=== PATIENT | male | born 1960 | race Caucasian/White ===

== ENCOUNTER 2016-05-13 21:17 | Inpatient (IN) | payer SELFPAY ==
[~2016-05-13] VITALS: Ht 182.9 cm; Wt 102.2 kg
[2016-05-13] MEDS: NITROGLYCERIN SUBLINGUAL 0.4 MG BOTTLE OF 25. SL PRN ×3 (21:37→21:50)
[2016-05-13 21:39] LABS: BASO % 0 % (0-3); EOS % 4 % (0-3); HEMATOCRIT 45.2 % (39.0-53.0); HEMOGLOBIN 14.9 g/dL (13.0-17.5); LYMPH # 3.2 x10^3/uL (1.0-4.8); LYMPH % 34 % (24-48); MEAN CORPUSCULAR HEMOGLOBIN 32 pg (25-35); MEAN CORPUSCULAR HGB CONC 33 g/dL (31-37); MEAN CORPUSCULAR VOLUME 97 fL (79-100); MONO % 10 % (0-9); NEUT % 52 % (31-73); PLATELET COUNT 275 x10^3/uL (140-400); RED BLOOD COUNT 4.67 x10^6/uL (4.30-5.70); RED CELL DISTRIBUTION WIDTH 13.8 % (11.5-14.5); WHITE BLOOD COUNT 9.5 x10^3/uL (4.0-11.0)
[2016-05-13 21:42] LABS: POTASSIUM ISTAT 3.8 mmol/L (3.5-5.0)
--- NOTE | 2016-05-13 21:42 | PHYS DOC ---
Past Medical History Past Medical History: Hypertension Past Surgical History: No Surgical History Alcohol Use: Occasionally Drug Use: Marijuana Adult General Chief Complaint Chief Complaint: CHEST PAIN HPI HPI 56-year-old male who is coming in with 30 minutes of sharp sudden onset of midsternal chest pain. Patient states he had a mild episode like this yesterday to fully resolved but this is much more severe. He rates his pain at a 10 out of 10 with sternal area. He states he has history of hypertension but has not been taking his medications. Currently his blood pressure is elevated at 189/ 111. He is mildly short of breath as well. He admits to marijuana use tonight but no other drug use. He does not smoke tobacco. at bedside gave him 3 baby aspirin and some cayenne. Review of Systems Review of Systems Constitutional: Denies fever or chills [] Eyes: Denies change in visual acuity, redness, or eye pain [] HENT: Denies nasal congestion or sore throat [] Respiratory: Denies cough, has shortness of breath [] Cardiovascular: No additional information not addressed in HPI [] GI: Denies abdominal pain, nausea, vomiting, bloody stools or diarrhea [] : Denies dysuria or hematuria [] Musculoskeletal: Denies back pain or joint pain [] Integument: Denies rash or skin lesions [] Neurologic: Denies headache, focal weakness or sensory changes [] Endocrine: Denies polyuria or polydipsia [] Current Medications Current Medications Current Medications Medications (Trade) Dose Ordered Sig/[facility] Start Time Stop Time Status Last Admin Dose Admin Fentanyl Citrate (Fentanyl 2ml Vial) 50 mcg 1X ONCE 05/13/16 22:00 05/13/16 22:02 DC 05/13/16 22:00 50 MCG Lorazepam (Ativan) 1 mg 1X ONCE 05/13/16 21:45 05/13/16 21:46 DC 05/13/16 21:37 1 MG Nitroglycerin (Nitrostat) 0.4 mg PRN Q5MIN PRN 05/13/16 21:45 05/13/16 21:50 0.4 MG Allergies Allergies Allergies Coded Allergies Type Severity Reaction Last Updated Verified No Known Drug Allergies 05/13/16 No Physical Exam Physical Exam Constitutional: Well developed, well nourished, no acute distress, non-toxic appearance. [] HENT: Normocephalic, atraumatic, bilateral external ears normal, oropharynx moist, no oral exudates, nose normal. [] Eyes: PERRLA, EOMI, conjunctiva normal, no discharge. [] Neck: Normal range of motion, no tenderness, supple, no stridor. [] Cardiovascular:Heart rate regular rhythm, no murmur [] Lungs & Thorax: Bilateral breath sounds clear to auscultation [] Abdomen: Bowel sounds normal, soft, no tenderness, no masses, no pulsatile masses. [] Skin: Warm, dry, no erythema, no rash. [] Back: No tenderness, no CVA tenderness. [] Extremities: No tenderness, no cyanosis, no clubbing, ROM intact, no edema. [] Neurologic: Alert and oriented X 3, normal motor function, normal sensory function, no focal deficits noted. [] Psychologic: Affect normal, judgement normal, mood normal. [] Current Patient Data Vital Signs Vital Signs Date Time Temp Pulse Resp B/P Pulse Ox O2 Delivery O2 Flow Rate FiO2 05/13/16 21:50 92 178/85 05/13/16 21:40 22 97 Room Air Lab Values Laboratory Tests Test 05/13/16 21:28 05/13/16 21:34 05/13/16 21:39 White Blood Count 9.5x10^3/uL (4.0-11.0) Red Blood Count 4.67x10^6/uL (4.30-5.70) Hemoglobin 14.9g/dL (13.0-17.5) Hematocrit 45.2% (39.0-53.0) Mean Corpuscular Volume 97fL (79-100) Mean Corpuscular Hemoglobin 32pg (25-35) Mean Corpuscular Hemoglobin Concent 33g/dL (31-37) Red Cell Distribution Width 13.8% (11.5-14.5) Platelet Count 275x10^3/uL (140-400) Neutrophils (%) (Auto) 52% (31-73) Lymphocytes (%) (Auto) 34% (24-48) Monocytes (%) (Auto) 10% (0-9) H Eosinophils (%) (Auto) 4% (0-3) H Basophils (%) (Auto) 0% (0-3) Neutrophils # (Auto) 4.9x10^3uL (1.8-7.7) Lymphocytes # (Auto) 3.2x10^3/uL (1.0-4.8) Monocytes # (Auto) 1.0x10^3/uL (0.0-1.1) Eosinophils # (Auto) 0.4x10^3/uL (0.0-0.7) Basophils # (Auto) 0.0x10^3/uL (0.0-0.2) Sodium Level 142mmol/L (136-145) Potassium Level 3.8mmol/L (3.5-5.1) Chloride Level 104mmol/L (98-107) Carbon Dioxide Level 30mmol/L (21-32) Anion Gap 8 (6-14) 18mmol/L (6-14) H Blood Urea Nitrogen 22mg/dL (8-26) Creatinine 1.6mg/dL (0.7-1.3) H Estimated GFR (Cockcroft-Gault) 44.6 Glucose Level 121mg/dL (70-99) H 115mg/dL (70-99) H Calcium Level 9.5mg/dL (8.5-10.1) Troponin I Quantitative 0.008ng/mL (0.000-0.055) Ethyl Alcohol Level < 10mg/dL (0-10) POC Troponin I 0.01ng/ml (<0.08) POC Hemoglobin 15.6g/dL (14-18) POC Hematocrit 46% (37-52) POC Sodium 142mmol/L (135-145) POC Potassium 3.8mmol/L (3.5-5.0) POC Chloride 103mmol/L (98-110) POC Total CO2 25mmol/L (23-32) POC Blood Urea Nitrogen 22mg/dL (8-26) POC Creatinine 1.7mg/dL (0.5-1.4) H POC Ionized Calcium (Solo) 1.19mmol/L (1.13-1.32) Laboratory Tests 05/13/16 21:28 Laboratory Tests 05/13/16 21:28 05/13/16 21:39 EKG EKG EKG as interpreted by me reveals a sinus rhythm with a rate of 71. The t-waves appear to be peaked in V3, V4. There are no acute ST elevations. This EKG does not demonstrate STEMI criteria but will be repeated in 20 min. Radiology/Procedures Radiology/Procedures One view of the chest as interpreted by me does not reveal an acute cardiopulmonary process. Course & Med Decision Making Course & Med Decision Making Pertinent Labs and Imaging studies reviewed. (See chart for details) This 56-year-old male with sudden onset of chest pain has an EKG that does show some eat T waves in V3 and V4 for which I will repeat in 20 minutes for any changes. An i-STAT troponin will be given. I will give the patient sublingual nitroglycerin and a dose of Ativan for anxiety. The patient will likely be admitted for further observation and treatment for his ongoing chest pain. Repeat EKG does not reveal any acute changes. His troponin is negative. His chest x-ray is unremarkable. I discussed the needed for admission with Dr Plunkett who agreed to accept the patient for admission with cardiology consult. 3 doses of sublingual nitroglycerin were unsuccessful treatment patient's chest pain. Patient was ultimately given fentanyl with moderate relief. Dragon Disclaimer Dragon Disclaimer This electronic medical record was generated, in whole or in part, using a voice recognition dictation system. Departure Departure Impression: Primary Impression: Chest pain Disposition: ADMITTED INPATIENT Admitting Physician: Hernan Plunkett Condition: STABLE ARNAV GARCIA DO May 13, 2016 21:43
[2016-05-13] MEDS ORDERED: LORAZEPAM 2 MG/ML VIAL IV ONE (21:45)
[2016-05-13 21:50] LABS: CALCIUM 9.5 mg/dL (8.5-10.1); CREATININE 1.6 mg/dL (0.7-1.3); GFR 44.6; POTASSIUM 3.8 mmol/L (3.5-5.1)
[2016-05-13] MEDS ORDERED: FENTANYL PF 100 MCG/2 ML VIAL. IV ONE (22:00)
[2016-05-13] MEDS ORDERED: ACETAMINOPHEN 325 MG TABLET. PO PRN (22:30)
[2016-05-13] MEDS ORDERED: ONDANSETRON PF 4 MG/2 ML VIAL. IV PRN (22:30)
[2016-05-13 22:45] VITALS: BP 135/86
--- NOTE | 2016-05-13 23:12 | ACF ---
Admission Forms Criteria CARDIOLOGY GRG Clinical Indications for Admission to Inpatient Care ( Place 'X' for any and all applicable criteria): Hospital admission is needed for appropriate care of the patient because of ANY ONE of the following (1): [ ] I. Hemodynamic instability as indicated by ALL of the following (1)(2)(3) (4)(5) [ ]a) Vital signs or other findings not as expected for chronic patient condition or baseline [ ]b) Instability indicated by ANY ONE of the following: [ ]i) Hypotension [ ]ii) Symptomatic Tachycardia unresponsive to treatment ( e.g., analgesia, fluids, sedation as indicated) [ ]iii) Inadequate perfusion indicated by ANY ONE of the following: [ ] 1) Lactic acidosis (> 2 mmol/L) [ ] 2) New abnormal capillary refill (> 3 seconds) [ ] 3) Reduced urine output [ ] 4) New altered mental status [ ]iv) Orthostatic vital sign changes unresponsive to treatment (e.g., fluids) [ ]v) IV inotropic or vasopressor medication required to maintain adequate blood pressure or perfusion [ ] II. Severe heart failure as indicated by ANY ONE of the following(17)(18) [ ]a) Respiratory distress [ ]b) Hypotension [ ]c) Anasarca (refractory to outpatient therapy) [ ]d) Cardiac arrhythmias of immediate concern [ ]e) Myocardial ischemia [ ] III. Cardiac arrhythmias or findings of immediate concern indicated by ANY ONE of the following (19)(20): [ ] a) Heart rhythms that are inherently dangerous or unstable indicated by ANY ONE of the following (21)(22)(23): [ ] i) Resuscitated ventricular fibrillation or cardiac arrest [ ] ii) Ventricular escape rhythm [ ] iii) Sustained ventricular tachycardia (30 seconds or more of ventricular rhythm at greater than 100 beats per minute) [ ] iv) Nonsustained ventricular tachycardia and ANY ONE of the following: [ ] 1) Suspected cardiac ischemia as cause or consequence of ventricular tachycardia [ ] 2) In setting of acute myocarditis [ ] b) Unstable cardiac conduction defects indicated by ANY ONE of the following(23)(24)(25) [ ] i) Type II second-degree atrioventricular block [ ]ii) Third-degree atrioventricular block [ ]iii) New-onset left bundle branch block with suspected myocardial ischemia [ ]c) Any heart rhythm and ANY ONE of the following (21)(22)(26)(27) (28) [ ] i) Continuous long-term ECG monitoring needed (e.g., initiation of drug requiring monitoring for more than 24 hours) [ ] ii) Patient has automatic implanted cardioverter defibrillator that is repeatedly firing, malfunctioning, or in need of immediate adjustment of settings beyond the scope of ambulatory or observation care [ ]d) Heart rhythms of concern due to ANY ONE of the following: [ ] i) Hypotension [ ] ii) Respiratory distress [ ] iii) Association with other significant symptoms (e.g., bradycardia with syncope or ongoing dizziness, supraventricular tachycardia with chest pain (14)(15)(17) [ ] IV. Monitoring for cardiac contusion beyond the scope of observation care needed [A](30)(31)(32) [ ] V. Surgical or device complication (e.g., valve replacement complication , pacemaker dysfunction) (35)(41)(44)(45)(46) [ ] . Inpatient palliative care needed. [B](49) Also use Inpatient Palliative Care Criteria [ ] VII. Nonbacterial thrombotic (marantic) endocarditis (36)(43)(47)(48) [X] VIII. Cardiology condition, symptom, or finding for which emergency and observation care has failed or are not considered appropriate. [ ] IX. Acute valvular disease requiring inpatient as indicated by ANY ONE of the following (41) [ ]a) Acute valvular regurgitation (42) [ ]b) Noninfectious valvulitis (43) [ ]c) Obstructive valve thrombosis [ ]d) Paravalvular leak [ ]e) Other significant valvular disorder remaining after emergency or observation level of care (as appropriate) [ ]X. Pericardial disease requiring inpatient treatment as indicated by ANY ONE of the following (33)(34)(35)(36)(37) [ ]a) Suspected tamponade (38)(39)(40) [ ]b) Hemopericardium [ ]c) Other significant pericardial disorder remaining after emergency or observation level of care (as appropriate) [ ] XI. Cardiac ischemia beyond scope of emergency and observation care. [ ] XII. Hypertension requiring inpatient treatment as indicated by ANY ONE of the following (6)(7)(8) [ ]a) SBP greater than 220 mm Hg or DBP greater than 120 mmHg despite treatment [ ]b) SBP greater than 140 mm Hg or DBP greater than 100 mm Hg with evidence of acute end organ damage as indicated by ANY ONE of the following [ ] i) Encephalopathy [ ] ii) Acute renal failure as indicated by new onset of ANY ONE of the following (9)(10)(11)(12)(13) [ ]1) 3-fold rise in serum creatinine from baseline [ ]2) Serum creatinine greater than 4 mg/dL ( 354 micromoles/L) with acute rise greater than 0.5 mg/dL (44.2 micromoles/L) [ ]3) Reduction of more than 75% in estimated glomerular filtration rate from baseline [ ]4) Estimated glomerular filtration rate less than 35 mL/min/1.73m2 (0.59 mL/sec/1.73m2) in child up to 18 years of age [ ]5) Cessation of urine output indicated by ALL of the following [ ]A. Adequate volume status [ ]B. Inadequate urine output as indicated by ANY ONE of the following [ ]a. Urine output less than 0.3 mL/kg/hr for 24 hours [ ]b. Anuria (urine output less than 0.1 mL/kg/hr) for 12 hours [ ] iii) Aortic dissection [ ] iv) Myocardial Ischemia [ ] v) Left ventricular heart failure [ ]vi) Retinal Hemorrhage [ ]vii) Other significant finding [ ]c) Hypertension in child requiring inpatient treatment as indicated by ALL of the following(14)(15)(16) [ ] i) Outpatient treatment not effective, not available, or not appropriate [ ]ii) SBP or DBP greater than 95th percentile for age [ ]iii) Evidence of acute end organ damage as indicated by ANY ONE of the following [ ]1) Altered mental status [ ]2) Acute renal failure as indicated by new onset of ANY ONE of the following(9)(10)(11)(12)(13) [ ]A. 3-fold rise in serum creatinine from baseline [ ]B. Serum creatinine greater than 4 mg/dL (354 micromoles/L) with acute rise greater than 0.5 mg/dL (44.2 micromoles/L) [ ]C. Reduction of more than 75% in estimated glomerular filtration rate from baseline [ ]D. Estimated glomerular filtration rate less than 35 mL/min/1.73m2 (0.59 mL/sec/1.73m2) in child up to 18 years of age [ ]E. Cessation of urine output indicated by ALL of the following [ ]a. Adequate volume status [ ]b. Inadequate urine output as indicated by ANY ONE of the following [ ]i) Urine output less than 0.3 mL/kg/hr for 24 hours [ ]ii) Anuria ( urine output less than 0.1 mL/kg/hr) for 12 hours [ ]3) Severe headache [ ]4) Visual disturbance [ ]5) Retinal hemorrhage [ ]6) Other significant finding [ ]XIII. Complications of transplanted heart indicated by ANY ONE of the following(61): [ ]a) Acute graft rejection requiring inpatient management (eg, intravenous immunosuppression)(62)(63) [ ]b) Acute graft heart failure indicated by ANY ONE of the following(64): [ ]i) Hemodynamic instability [ ]ii) Cardiac arrhythmias of immediate concern [ ]iii) Pulmonary edema that is very severe (eg, mechanical ventilation needed, imminent or likely, need for 100% oxygen to keep oxygen saturation above 90%) [ ]iv) Pulmonary edema that is persistent as indicated by ALL of the following: [ ]1) New need for oxygen therapy to keep oxygen saturation above 90% (or increased FiO2 need from baseline) [ ]2) Has not improved sufficiently with emergency department or observation care IV diuretics or other heart failure treatments[E] [ ]v) Altered mental status that is severe or persistent [ ]vi) Increased creatinine (new on laboratory test) with reduction of more than 50% in estimated glomerular filtration rate from baseline [ ]vii) Progressively (ongoing) rising creatinine (known from past laboratory test) with reduction of more than 25% in estimated glomerular filtration rate from baseline [ ]viii) Acute renal failure [ ]ix) Acute peripheral ischemia (eg, examination shows pulseless, cool, mottled, or cyanotic extremity) [ ]x) Pulmonary artery catheter monitoring needed [ ]xi) Other sign or symptom of heart failure requiring inpatient treatment (ie, too severe or not responsive to outpatient and observation care treatment) [ ]c) Infection requiring inpatient management (eg, Hemodynamic instability, need for intravenous antimicrobial treatment)(66)(67)(68)(69)(70) [ ]d) Cardiac allograft vasculopathy requiring inpatient management ( eg evidence of cardiac ischemia)(71) [ ]e) Other complication of transplanted heart (eg, stroke, severe pulmonary hypertension, severe valvular dysfunction) requiring inpatient management(72) The original [facility] content created by [facility] has been revised. The portions of the content which have been revised are identified through the use of italic text or in bold, and [facility] has neither reviewed nor approved the modified material. All other unmodified content is copyright [facility]. Please see references footnoted in the original [facility] edition 2016 Admission Criteria Met?: Yes CAROLINA ATKINS May 13, 2016 23:12
[2016-05-14 02:30] VITALS: BP 93/51
--- NOTE | 2016-05-14 08:47 | RAD ---
Single view chest History:Chest pain An AP view of the chest is submitted. Comparison: None. Findings: Pericardial cardiac silhouette is upper limits of normal. There is no dependent pleural fluid or pneumothorax. There is vague somewhat round opacity of the superior right hemithorax at the level of the right posterior fourth and fifth ribs although near the anterior margin of the right first rib. There is also somewhat round opacity in the left infrahilar region. Impression: There is somewhat round opacity left infrahilar region for which [address] evaluation recommended. There is also vague round focus of opacity of the superior right hemithorax upper lobe more likely due to the first rib margin. There are no old exams available for comparison. Findings were called to Dr. Guerrero 05/14/16 at 08:44 am.
[2016-05-14] MEDS ORDERED: ALBUTEROL SULFATE 2.5 MG/3 ML NEBU. NEB PRN (10:15)
[2016-05-14] MEDS ORDERED: hydrALAZINE 20 MG/ML VIAL. IVP PRN (10:15)
[2016-05-14] MEDS ORDERED: ONDANSETRON PF 4 MG/2 ML VIAL. IV PRN (10:15)
[2016-05-14] MEDS ORDERED: ACETAMINOPHEN 325 MG TABLET. PO PRN (10:15)
[2016-05-14 11:00] VITALS: BP 131/79
--- NOTE | 2016-05-14 11:09 | PDOC ---
Provider Note Provider Note Pt. seen and examined. Will plan for treadmill stress echo tomorrow. FERNANDO STINSON MD May 14, 2016 11:09
--- NOTE | 2016-05-14 11:34 | PDOC1 ---
History and Physical Current Problem List Problem List Problems Medical Problems: (1) Chest pain Status: Acute Current Medications Current Medications Current Medications Medications (Trade) Dose Ordered Sig/[facility] Start Time Stop Time Status Last Admin Dose Admin Acetaminophen (Tylenol) 325 mg PRN Q6HRS PRN 05/14/16 10:15 Acetaminophen/ Hydrocodone Bitart (Lortab 5/325) 1 tab PRN Q6HRS PRN 05/14/16 10:15 Albuterol Sulfate (Ventolin Neb Soln) 2.5 mg PRN Q4HRS PRN 05/14/16 10:15 Fentanyl Citrate (Fentanyl 2ml Vial) 50 mcg PRN Q2HR PRN 05/13/16 22:30 05/14/16 22:29 Hydralazine HCl (Apresoline) 10 mg PRN Q4HRS PRN 05/14/16 10:15 Lorazepam (Ativan) 1 mg 1X ONCE 05/13/16 21:45 05/13/16 21:46 DC 05/13/16 21:37 1 MG Nitroglycerin (Nitrostat) 0.4 mg PRN Q5MIN PRN 05/13/16 21:45 05/13/16 21:50 0.4 MG Ondansetron HCl (Zofran) 4 mg PRN Q8HRS PRN 05/14/16 10:15 Allergies Allergies Allergies Coded Allergies Type Severity Reaction Last Updated Verified No Known Drug Allergies 05/13/16 No ROS Review of System CONSTITUTIONAL: No fever or chills EYES: No recent changes SKIN: No rash or itching CARDIOVASCULAR: chest pain, no yncope, palpitations, or edema RESPIRATORY: No SOB or cough GASTROINTESTINAL: No nausea, vomiting or abdominal pain NEUROLOGICAL: No headaches or weakness ENDOCRINE: No cold or heat intolerance GENITOURINARY: No urgency or frequency of urination MUSCULOSKELETAL: No back pain or joint pain LYMPHATICS: No enlarged lymph nodes PSYCHIATRIC: No anxiety or depression Physical Exam Physical Exam GEN.: No apparent distress. Alert and oriented. HEENT: Head is normocephalic, atraumatic NECK: Supple. LUNGS: Clear to auscultation. HEART: RRR, S1, S2 present. Peripheral pulses intact ABDOMEN: Soft, nontender. Positive bowel sounds. EXTREMITIES: Without any cyanosis. NEUROLOGIC: Normal speech, normal tone PSYCHIATRIC: Normal affect, normal mood. SKIN: No ulcerations Vitals Vitals Vital Signs Date Time Temp Pulse Resp B/P Pulse Ox O2 Delivery O2 Flow Rate FiO2 05/14/16 02:30 98.3 75 18 93/51 94 Room Air 98.3 Labs Labs Laboratory Tests Test 05/13/16 21:28 05/13/16 21:34 05/13/16 21:39 White Blood Count 9.5x10^3/uL (4.0-11.0) Red Blood Count 4.67x10^6/uL (4.30-5.70) Hemoglobin 14.9g/dL (13.0-17.5) Hematocrit 45.2% (39.0-53.0) Mean Corpuscular Volume 97fL (79-100) Mean Corpuscular Hemoglobin 32pg (25-35) Mean Corpuscular Hemoglobin Concent 33g/dL (31-37) Red Cell Distribution Width 13.8% (11.5-14.5) Platelet Count 275x10^3/uL (140-400) Neutrophils (%) (Auto) 52% (31-73) Lymphocytes (%) (Auto) 34% (24-48) Monocytes (%) (Auto) 10% (0-9) Eosinophils (%) (Auto) 4% (0-3) Basophils (%) (Auto) 0% (0-3) Neutrophils # (Auto) 4.9x10^3uL (1.8-7.7) Lymphocytes # (Auto) 3.2x10^3/uL (1.0-4.8) Monocytes # (Auto) 1.0x10^3/uL (0.0-1.1) Eosinophils # (Auto) 0.4x10^3/uL (0.0-0.7) Basophils # (Auto) 0.0x10^3/uL (0.0-0.2) Sodium Level 142mmol/L (136-145) Potassium Level 3.8mmol/L (3.5-5.1) Chloride Level 104mmol/L (98-107) Carbon Dioxide Level 30mmol/L (21-32) Anion Gap 8 (6-14) 18mmol/L (6-14) Blood Urea Nitrogen 22mg/dL (8-26) Creatinine 1.6mg/dL (0.7-1.3) Estimated GFR (Cockcroft-Gault) 44.6 Glucose Level 121mg/dL (70-99) 115mg/dL (70-99) Calcium Level 9.5mg/dL (8.5-10.1) Troponin I Quantitative 0.008ng/mL (0.000-0.055) Ethyl Alcohol Level < 10mg/dL (0-10) Bedside Troponin I 0.01ng/ml (<0.08) Bedside Hemoglobin 15.6g/dL (14-18) Bedside Hematocrit 46% (37-52) Bedside Sodium 142mmol/L (135-145) Bedside Potassium 3.8mmol/L (3.5-5.0) Bedside Chloride 103mmol/L (98-110) Bedside Total CO2 25mmol/L (23-32) Bedside Blood Urea Nitrogen 22mg/dL (8-26) Bedside Creatinine 1.7mg/dL (0.5-1.4) Bedside Ionized Calcium (Solo) 1.19mmol/L (1.13-1.32) Laboratory Tests Test 05/13/16 21:28 05/13/16 21:34 05/13/16 21:39 White Blood Count 9.5x10^3/uL (4.0-11.0) Red Blood Count 4.67x10^6/uL (4.30-5.70) Hemoglobin 14.9g/dL (13.0-17.5) Hematocrit 45.2% (39.0-53.0) Mean Corpuscular Volume 97fL (79-100) Mean Corpuscular Hemoglobin 32pg (25-35) Mean Corpuscular Hemoglobin Concent 33g/dL (31-37) Red Cell Distribution Width 13.8% (11.5-14.5) Platelet Count 275x10^3/uL (140-400) Neutrophils (%) (Auto) 52% (31-73) Lymphocytes (%) (Auto) 34% (24-48) Monocytes (%) (Auto) 10% (0-9) Eosinophils (%) (Auto) 4% (0-3) Basophils (%) (Auto) 0% (0-3) Neutrophils # (Auto) 4.9x10^3uL (1.8-7.7) Lymphocytes # (Auto) 3.2x10^3/uL (1.0-4.8) Monocytes # (Auto) 1.0x10^3/uL (0.0-1.1) Eosinophils # (Auto) 0.4x10^3/uL (0.0-0.7) Basophils # (Auto) 0.0x10^3/uL (0.0-0.2) Sodium Level 142mmol/L (136-145) Potassium Level 3.8mmol/L (3.5-5.1) Chloride Level 104mmol/L (98-107) Carbon Dioxide Level 30mmol/L (21-32) Anion Gap 8 (6-14) 18mmol/L (6-14) Blood Urea Nitrogen 22mg/dL (8-26) Creatinine 1.6mg/dL (0.7-1.3) Estimated GFR (Cockcroft-Gault) 44.6 Glucose Level 121mg/dL (70-99) 115mg/dL (70-99) Calcium Level 9.5mg/dL (8.5-10.1) Troponin I Quantitative 0.008ng/mL (0.000-0.055) Ethyl Alcohol Level < 10mg/dL (0-10) Bedside Troponin I 0.01ng/ml (<0.08) Bedside Hemoglobin 15.6g/dL (14-18) Bedside Hematocrit 46% (37-52) Bedside Sodium 142mmol/L (135-145) Bedside Potassium 3.8mmol/L (3.5-5.0) Bedside Chloride 103mmol/L (98-110) Bedside Total CO2 25mmol/L (23-32) Bedside Blood Urea Nitrogen 22mg/dL (8-26) Bedside Creatinine 1.7mg/dL (0.5-1.4) Bedside Ionized Calcium (Solo) 1.19mmol/L (1.13-1.32) VTE Prophylaxis Ordered VTE Prophylaxis Devices: No VTE Pharmacological Prophylaxi: No PERICO PERRY MD May 14, 2016 11:34
[2016-05-14] MEDS ORDERED: LORAZEPAM 1 MG TABLET. PO PRN (12:00)
[2016-05-14] MEDS: LORAZEPAM 1 MG TABLET. PO PRN ×2 (12:07→19:56)
[2016-05-14 12:14] LABS: BASO # 0.1 x10^3/uL (0.0-0.2); BASO % 1 % (0-3); EOS % 4 % (0-3); HEMATOCRIT 44.7 % (39.0-53.0); HEMOGLOBIN 14.9 g/dL (13.0-17.5); LYMPH # 1.9 x10^3/uL (1.0-4.8); LYMPH % 27 % (24-48); MEAN CORPUSCULAR HEMOGLOBIN 32 pg (25-35); MEAN CORPUSCULAR HGB CONC 34 g/dL (31-37); MEAN CORPUSCULAR VOLUME 96 fL (79-100); MONO % 8 % (0-9); NEUT % 60 % (31-73); PLATELET COUNT 267 x10^3/uL (140-400); RED BLOOD COUNT 4.66 x10^6/uL (4.30-5.70); RED CELL DISTRIBUTION WIDTH 14.1 % (11.5-14.5); WHITE BLOOD COUNT 6.9 x10^3/uL (4.0-11.0)
--- NOTE | 2016-05-14 12:18 | EKG ---
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
[2016-05-14 12:19] LABS: CALCIUM 9.3 mg/dL (8.5-10.1); CREATININE 1.4 mg/dL (0.7-1.3); GFR 52.1; POTASSIUM 4.2 mmol/L (3.5-5.1)
--- NOTE | 2016-05-14 12:19 | EKG ---
[facility] [address] [place] [address] Test Date: 2016-05-13 Test Time: 22:01:43 Pat Name: ALLI MATHUR Department: Room: 202 1 Gender: M Quality Audit Representative: : 1960 Requested By: ARNAV GARCIA Order Number: [id number] Reading MD: Criss Cr Measurements Intervals [place] Rate: 93 P: 37 DE: 156 QRS: -15 QRSD: 98 T: 51 QT: 350 QTc: 438 Interpretive Statements SINUS RHYTHM LEFT ATRIAL ABNORMALITY LEFTWARD AXIS LEFT VENTRICULAR HYPERTROPHY RI6.01 Unconfirmed report No previous ECG available for comparison Electronically Signed On 05-14-2016 19:16:22 REGISTERED NURSING PROFESSOR by Criss Cr
[2016-05-14] MEDS: FENTANYL PF 100 MCG/2 ML VIAL. IV PRN ×3 (13:34→19:57)
[2016-05-14 15:00] VITALS: BP 132/66
--- NOTE | 2016-05-14 18:41 | PDOC2 ---
CARDIOLOGY CONSULT NOTE CHEIF COMPLAINT: CHest pain Problems: HPI: 56 y.o male presenting with chest pain lasted more than 30 minutes and radiated to his back. He was hypertensive upon admission. Feeling better now. He wanted to go home as he was feeling better. We discussed that he had chest pain, 01/09 in nature that was radiating and that he has other risk factors. He ultimately decided to stay. 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 He also apparently took an OTC sexual supplement prior to his chest pain occurring. PMHX: Polysubstance abuse HTN SOCHX: Smoker, prior drug use. 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 . FAMHX: Negative for SCD or early CAD CURRENT MEDS: Current Medications Medications (Trade) Dose Ordered Sig/Federico Start Time Stop Time Status Last Admin Dose Admin Acetaminophen (Tylenol) 325 mg PRN Q6HRS PRN 05/14/16 10:15 Acetaminophen/ Hydrocodone Bitart (Lortab 5/325) 1 tab PRN Q6HRS PRN 05/14/16 10:15 Albuterol Sulfate (Ventolin Neb Soln) 2.5 mg PRN Q4HRS PRN 05/14/16 10:15 Fentanyl Citrate (Fentanyl 2ml Vial) 50 mcg PRN Q2HR PRN 05/13/16 22:30 05/14/16 22:29 05/14/16 16:43 50 MCG Hydralazine HCl (Apresoline) 10 mg PRN Q4HRS PRN 05/14/16 10:15 Lorazepam (Ativan) 1 mg PRN BID PRN 05/14/16 15:15 Nitroglycerin (Nitrostat) 0.4 mg PRN Q5MIN PRN 05/13/16 21:45 05/13/16 21:50 0.4 MG Ondansetron HCl (Zofran) 4 mg PRN Q8HRS PRN 05/14/16 10:15 ALLERGIES: Allergies Coded Allergies Type Severity Reaction Last Updated Verified No Known Drug Allergies 05/13/16 No ROS: Negative for 01/13 systems reviewed unless otherwise noted above in HPI PHYSICAL EXAM: Vital Signs: Vital Signs Date Time Temp Pulse Resp B/P Pulse Ox O2 Delivery O2 Flow Rate FiO2 05/14/16 17:13 16 95 Room Air 05/14/16 15:00 98.2 72 132/66 98.2 I & O Intake and Output 05/14/16 07:00 Intake Total 0 ml Balance 0 ml Intake Oral 0 ml Physical Exam: Gen: A/O x 3 CVS: RRR, no m/r/g PULM: CTAB ABD: Soft, NT/ND+BS EXT: No edema. NEURO: Non focal exam. MSK: No trauma. DIAGNOSTIC TESTING: Labs reviewed. Trop negative. Lab Laboratory Tests Test 05/13/16 21:28 05/13/16 21:34 05/13/16 21:39 05/14/16 11:18 White Blood Count 9.5x10^3/uL (4.0-11.0) 6.9x10^3/uL (4.0-11.0) Red Blood Count 4.67x10^6/uL (4.30-5.70) 4.66x10^6/uL (4.30-5.70) Hemoglobin 14.9g/dL (13.0-17.5) 14.9g/dL (13.0-17.5) Hematocrit 45.2% (39.0-53.0) 44.7% (39.0-53.0) Mean Corpuscular Volume 97fL (79-100) 96fL (79-100) Mean Corpuscular Hemoglobin 32pg (25-35) 32pg (25-35) Mean Corpuscular Hemoglobin Concent 33g/dL (31-37) 34g/dL (31-37) Red Cell Distribution Width 13.8% (11.5-14.5) 14.1% (11.5-14.5) Platelet Count 275x10^3/uL (140-400) 267x10^3/uL (140-400) Neutrophils (%) (Auto) 52% (31-73) 60% (31-73) Lymphocytes (%) (Auto) 34% (24-48) 27% (24-48) Monocytes (%) (Auto) 10% (0-9) H 8% (0-9) Eosinophils (%) (Auto) 4% (0-3) H 4% (0-3) H Basophils (%) (Auto) 0% (0-3) 1% (0-3) Neutrophils # (Auto) 4.9x10^3uL (1.8-7.7) 4.2x10^3uL (1.8-7.7) Lymphocytes # (Auto) 3.2x10^3/uL (1.0-4.8) 1.9x10^3/uL (1.0-4.8) Monocytes # (Auto) 1.0x10^3/uL (0.0-1.1) 0.5x10^3/uL (0.0-1.1) Eosinophils # (Auto) 0.4x10^3/uL (0.0-0.7) 0.3x10^3/uL (0.0-0.7) Basophils # (Auto) 0.0x10^3/uL (0.0-0.2) 0.1x10^3/uL (0.0-0.2) Sodium Level 142mmol/L (136-145) 140mmol/L (136-145) Potassium Level 3.8mmol/L (3.5-5.1) 4.2mmol/L (3.5-5.1) Chloride Level 104mmol/L (98-107) 104mmol/L (98-107) Carbon Dioxide Level 30mmol/L (21-32) 28mmol/L (21-32) Anion Gap 8 (6-14) 18mmol/L (6-14) H 8 (6-14) Blood Urea Nitrogen 22mg/dL (8-26) 19mg/dL (8-26) Creatinine 1.6mg/dL (0.7-1.3) H 1.4mg/dL (0.7-1.3) H Estimated GFR (Cockcroft-Gault) 44.6 52.1 Glucose Level 121mg/dL (70-99) H 115mg/dL (70-99) H 113mg/dL (70-99) H Calcium Level 9.5mg/dL (8.5-10.1) 9.3mg/dL (8.5-10.1) Ethyl Alcohol Level < 10mg/dL (0-10) Bedside Troponin I 0.01ng/ml (<0.08) Bedside Hemoglobin 15.6g/dL (14-18) Bedside Hematocrit 46% (37-52) Bedside Sodium 142mmol/L (135-145) Bedside Potassium 3.8mmol/L (3.5-5.0) Bedside Chloride 103mmol/L (98-110) Bedside Total CO2 25mmol/L (23-32) Bedside Blood Urea Nitrogen 22mg/dL (8-26) Bedside Creatinine 1.7mg/dL (0.5-1.4) H Bedside Ionized Calcium (Solo) 1.19mmol/L (1.13-1.32) ASSESSMENT: 1. Atypical chest pain with multiple risk factors. 2. HTN PLAN: 1. Plan for treadmill stress echo in a.m 2. Meds tailored to 4 dollar list. Thanks for consult. FERNANDO STINSON MD May 14, 2016 18:41
[2016-05-14 19:07] VITALS: BP 115/83
[2016-05-14] MEDS: HYDROCODONE/APAP 5/325MG TABLET. PO PRN (19:57)
[2016-05-14 23:08] VITALS: BP 114/79
[2016-05-15 02:39] VITALS: BP 102/54
[2016-05-15] MEDS: LORAZEPAM 1 MG TABLET. PO PRN ×2 (03:32→13:25)
[2016-05-15] MEDS: HYDROCODONE/APAP 5/325MG TABLET. PO PRN ×2 (03:33→13:25)
[2016-05-15 05:50] LABS: BASO # 0.1 x10^3/uL (0.0-0.2); BASO % 1 % (0-3); EOS % 8 % (0-3); HEMATOCRIT 42.9 % (39.0-53.0); HEMOGLOBIN 14.1 g/dL (13.0-17.5); LYMPH # 1.9 x10^3/uL (1.0-4.8); LYMPH % 39 % (24-48); MEAN CORPUSCULAR HEMOGLOBIN 32 pg (25-35); MEAN CORPUSCULAR HGB CONC 33 g/dL (31-37); MEAN CORPUSCULAR VOLUME 97 fL (79-100); MONO % 10 % (0-9); NEUT % 43 % (31-73); PLATELET COUNT 255 x10^3/uL (140-400); RED BLOOD COUNT 4.41 x10^6/uL (4.30-5.70); RED CELL DISTRIBUTION WIDTH 14.1 % (11.5-14.5)
[2016-05-15 06:10] LABS: CALCIUM 8.9 mg/dL (8.5-10.1); CREATININE 1.3 mg/dL (0.7-1.3); GFR 56.7; POTASSIUM 4.1 mmol/L (3.5-5.1)
[2016-05-15 07:40] VITALS: BP 114/86
--- NOTE | 2016-05-15 10:12 | HP ---
ADMIT DATE: 05/13/2016 CHIEF COMPLAINT: Chest pain. HISTORY OF PRESENT ILLNESS: A 56-year-old male patient presented to the ER with complaints of chest pain symptoms lasted for mainly 30 minutes. He was sitting in bed when he first noticed the epigastric chest pain radiating to his back. At the time of arrival, he was having hypertension. He denies any fever, chills, nausea, vomiting, or syncope. At the time of examination this morning, his chest pain has resolved. PAST MEDICAL HISTORY: Hypertension, substance abuse. 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 FAMILY HISTORY: Negative for sudden cardiac deaths. ALLERGIES: NKDA. REVIEW OF SYSTEMS AND PHYSICAL EXAMINATION: Please see my electronic H and P. LABORATORY FINDINGS: CBC within normal limits. Chemistry within normal limits except for mild creatinine of 1.4. Troponins, first set was less than 0.01 and EKG not able to review. As per the report, no acute ST or T-wave changes seen. ASSESSMENT: 1. Chest pain, needs to rule out acute coronary syndrome risk factors smoking and age. 2. Hypertension at the time of admission. PLAN: 1. p.r.n. Ativan for anxiety. 2. Stress test in the a.m. Cardiology has been following. Continue telemetry, p.r.n. hydralazine for systolic blood pressure more than 170. 3. 2 more sets of troponins 4. prn nicotine patch 5. NPO form midnight PERICO PERRY MD DR: JONATHAN/israel JOB#: [id number] / [id number] MALIK
--- NOTE | 2016-05-15 11:08 | CARD ---
APPROVED REPORT EXAM: Two-dimensional and M-mode echocardiogram with Doppler and color Doppler. Other Information Quality : GoodHR: 65bpm Rhythm : NSR INDICATION Chest Pain RISK FACTORS Hypertension 2D DIMENSIONS RVDd2.6 (2.9-3.5cm)Left Atrium(2D)4.4 (1.6-4.0cm) IVSd1.3 (0.7-1.1cm)Aortic Root(2D)3.4 (2.0-3.7cm) LVDd5.1 (3.9-5.9cm)LVOT Diameter2.3 (1.8-2.4cm) PWd1.3 (0.7-1.1cm)LVDs3.0 (2.5-4.0cm) FS (%) 40.8 %SV89.2 ml LVEF(%)71.3 (>50%) Aortic Valve AoV Peak Jeramie.135.7cm/sAoV VTI27.8cm AO Peak GR.7.4mmHgLVOT Peak Jeramie.109.5cm/s AO Mean GR.4mmHgAVA (VMAX)3.38cm2 AI P 1/2 [id number] Mitral Valve MV E Oensnhtf47.0cm/sMV E Peak Gr.3mmHg MV DECEL [id number] A Kwvgdiyy56.1cm/s MV E Mean Gr.1mmHgE/A Ratio0.8 MV A [id number] Pulmonary Valve PV Peak Ewgjredl56.1cm/s Tricuspid Valve TR P. Sprnvdlt062ko/sTR Peak Gr.22mmHg Pulmonary Vein S1 Klkbzohs13.7cm/sD2 Aahfrfvf02.5cm/s PVa njwfaowu25lfam LEFT VENTRICLE The left ventricle is normal size. There is moderate concentric left ventricular hypertrophy. The lef t ventricular systolic function is normal and the ejection fraction is within normal range. The Eject ion Fraction is 65-70%. There is normal LV segmental wall motion. Transmitral Doppler flow pattern is Grade I-abnormal relaxation pattern. RIGHT VENTRICLE The right ventricle is normal size. There is normal right ventricular wall thickness. The right ventr icular systolic function is normal. ATRIA The left atrium is mildly dilated. The right atrium size is normal. The interatrial septum is intact with no evidence for an atrial septal defect or patent foramen ovale as noted on 2-D or Doppler imagi ng. AORTIC VALVE The aortic valve is mildly sclerotic. Doppler and Color Flow revealed mild aortic regurgitation. Ther e is no significant aortic valvular stenosis. MITRAL VALVE The mitral valve leaflets are thickened. There is no evidence of mitral valve prolapse. There is no m itral valve stenosis. Doppler and Color Flow revealed mild mitral regurgitation. TRICUSPID VALVE Doppler and Color Flow revealed mild tricuspid regurgitation. The pulmonary artery systolic pressure is estimated at 27 mmHg. There is no pulmonary hypertension. PULMONIC VALVE Doppler and Color Flow revealed mild pulmonic valvular regurgitation. There is no pulmonic valvular s tenosis. GREAT VESSELS The aortic root is normal in size. The ascending aorta is normal in size. The pulmonary artery is nor mal. The IVC is normal in size and collapses >50% with inspiration. PERICARDIAL EFFUSION There is no evidence of significant pericardial effusion. Critical Notification Critical Value: No <Conclusion> The left ventricular systolic function is normal and the ejection fraction is within normal range. Th e Ejection Fraction is 65-70%. There is normal LV segmental wall motion. There is moderate concentric left ventricular hypertrophy. No significant valvular disease.
[2016-05-15] MEDS ORDERED: IOHEXOL 300 MG/ML 75 ML VIAL IV ONE (11:30)
[2016-05-15 11:35] VITALS: BP 118/89
[2016-05-15] MEDS ORDERED: CONTRAST GIVEN MC PRN (11:45)
--- NOTE | 2016-05-15 12:41 | CARD ---
APPROVED REPORT INDICATION Chest Pain RISK FACTORS Hypertension PROCEDURE The patient underwent an Exercise Stress Test using the Mandeep Protocol. Blood pressure, heart rate, a nd EKG were monitored. An Echocardiogram was performed by turbine technician in four stages in quad fashion. At peak stress four se lected images were obtained and placed side by side with resting images for comparison. STRESS ECHO FINDINGS The resting Echocardiogram showed normal left ventricular contractility with an estimated Ejection Fr action of about 70 %. Normal augmentation of myocardial wall segments using a 16 segment model. Test Type: Pharmacological Stress Nurse/Tech: COLLINS DAHL Test Indications: CHEST PAIN Cardiac History and Allergies: HTN, SEE EHR Medications: SEE EHR Medical History: SEE EHR Resting ECG: SR Resting Heart Rate: 89 bpm Resting Blood Pressure: 142/84mmHg Pretest Chest Pain: None Nurse/Tech Notes LUNG SOUNDS CLEAR, S1S2 WNL. 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 PT DUING TE ST HAD TO BE REMINDED FREUQENLTY TO WALK PROPLERLY ON MACHINE. PT WAS ATTEMPTING TO SKIP AND BE COMIC AL WHILE WALKING. PT REACHED TARGET HR. Stress Symptoms NONE STATED. POST EXERCISE Reason for Termination: Reached target heart rate, Reached target heart rate Max HR: 145 bpm 90% of Maximum Predicted HR: 162 bpm Exercise capacity: 12.8METs Max Blood Pressure: 162/69mmHg Blood Pressure response to exercise: Normal blood pressure response during stress. Heart Rate response to exercise: WNL Chest Pain: No. Arrhythmia: No. ST Change: No. INTERPRETATION Stress EKG Conclusion: Baseline EKG showed sinus rhythm. No ischemic changes at peak stress. No arr hythmias. RESTING ECG Rhythm: Sinus STRESS ECG Rhythm: Sinus Tachycardia Stress EKG shows no significant changes. Preliminary Notification Critical Value: No <Conclusion> Treadmill exercise stress echocardiogram did not show any evidence of ischemia or infarct. Normal left ventricle systolic function with ejection fraction estimated at 70%. Patient had good activity tolerance. Low risk for cardiac events.
--- NOTE | 2016-05-15 14:44 | RAD ---
CT of the chest with contrast, 05/15/2016: History: Abnormal chest radiograph Multidetector CT imaging was performed following an IV bolus injection of iodinated contrast material. The ascending aorta is slightly prominent measuring 4.2 cm in width. The remainder of the thoracic aorta is unremarkable. No mediastinal or hilar adenopathy is seen. There is a peripheral opacity in the posterior aspect of the left lower lobe abutting the pleural surface which contains coarse calcification. There are adjacent linear components compatible with scarring. This overall process measures approximately 3 cm in greatest diameter. This probably represents scarring on a post inflammatory basis or perhaps due to an old pulmonary infarct. A lung malignancy can occasionally calcify or envelop a preexisting calcification, however, that is a much less likely possibility in this case. There are additional peripheral linear opacities in both lower lobes compatible with scarring. No other pulmonary mass or significant consolidation is seen. No pleural fluid is evident. There are moderate scattered degenerative changes in the spine, particularly at the L1-2 disc level. IMPRESSION: 1. Subpleural opacity in the posterior aspect of the left lower lobe containing dense calcification most compatible with scarring on a postinflammatory basis or perhaps due to an old infarct. CT follow-up is suggested to confirm stability. 2. Additional linear opacities in both lower lobes are also compatible with scarring. 3. Minimal dilatation of the ascending aorta.
--- NOTE | 2016-05-15 15:42 | PDOC3 ---
Discharge Summary [facility] Date of Admission: May 13, 2016 Discharge Date: May 15, 2016 Admitting Diagnosis 1. chest pain, 2/2 anxiety likely Problems: Final Diagnosis Problems Medical Problems: (1) Chest pain Status: Acute CONSULTS card Brief Hospital Course Mr. Spear is a 56 old M, comes for chest pain, CE neg, MPI echo neg. CXR SHOWED possible nodulE, CT showed possible post inflammatory or old infarct , recommend fu with CT, will try to reach pulm. pt stable to dc , fu with pcp or pulm. dc time 35min Gen: A/O x 3 CVS: RRR, no m/r/g PULM: CTAB ABD: Soft, NT/ND+BS EXT: No edema. NEURO: Non focal exam. MSK: No trauma. Problems: Disposition home CONDITION AT DISCHARGE: Improved Diet regular No Active Prescriptions or Reported Meds Follow Up pcp in 2 weeks ROSARIO SALGADO MD May 15, 2016 15:42
--- NOTE | 2016-05-15 16:42 | PDOC ---
CARDIO Progress Notes Date and Time Date of Service 05/15/16 Time of Evaluation 1345 Subjective Subjective: No Chest Pain, No shortness of breath, No Palpitations, No Dizziness Vitals Vitals Vital Signs Date Time Temp Pulse Resp B/P Pulse Ox O2 Delivery O2 Flow Rate FiO2 05/15/16 14:25 20 95 Room Air 05/15/16 11:35 98.6 81 118/89 98.6 Weight Weight [ ] Input and Output Intake and Output Intake and Output 05/15/16 07:00 Intake Total 980 ml Balance 980 ml Intake Oral 980 ml # Voids 6 Laboratory Labs Laboratory Tests Test 05/15/16 04:52 White Blood Count 5.0x10^3/uL (4.0-11.0) Red Blood Count 4.41x10^6/uL (4.30-5.70) Hemoglobin 14.1g/dL (13.0-17.5) Hematocrit 42.9% (39.0-53.0) Mean Corpuscular Volume 97fL (79-100) Mean Corpuscular Hemoglobin 32pg (25-35) Mean Corpuscular Hemoglobin Concent 33g/dL (31-37) Red Cell Distribution Width 14.1% (11.5-14.5) Platelet Count 255x10^3/uL (140-400) Neutrophils (%) (Auto) 43% (31-73) Lymphocytes (%) (Auto) 39% (24-48) Monocytes (%) (Auto) 10% (0-9) Eosinophils (%) (Auto) 8% (0-3) Basophils (%) (Auto) 1% (0-3) Neutrophils # (Auto) 2.1x10^3uL (1.8-7.7) Lymphocytes # (Auto) 1.9x10^3/uL (1.0-4.8) Monocytes # (Auto) 0.5x10^3/uL (0.0-1.1) Eosinophils # (Auto) 0.4x10^3/uL (0.0-0.7) Basophils # (Auto) 0.1x10^3/uL (0.0-0.2) Sodium Level 142mmol/L (136-145) Potassium Level 4.1mmol/L (3.5-5.1) Chloride Level 106mmol/L (98-107) Carbon Dioxide Level 26mmol/L (21-32) Anion Gap 10 (6-14) Blood Urea Nitrogen 19mg/dL (8-26) Creatinine 1.3mg/dL (0.7-1.3) Estimated GFR (Cockcroft-Gault) 56.7 Glucose Level 100mg/dL (70-99) Calcium Level 8.9mg/dL (8.5-10.1) Physical Exam HEENT: Neck Supple W Full Motion Chest: Symmetric LUNGS: Clear to Auscultation Heart: S1S2, RRR Abdomen: Normal Aortic Impulse Extremities: 2+ Dorsalis Pedis, No Edema, No Calf Tenderness Neurology: alert, oriented, follow commands Assessment Assessment 1. Chest pain, atypical 2. Hypertension Recommendations Troponin series normal- AMI ruled out. Stress echo with no evidence of ischemia or infarct Pain possible GI in nature. BP well-controlled. May discharge from a cardiac standpoint CHRYSTAL NAJERA APRN May 15, 2016 16:42
== END 2016-05-15 15:45 | disposition home or self-care (01) | DRG 880 ==
LOC: ER 21:17 → 2 NORTH 22:15 → ER 22:34
PROVIDERS: ADMIT Internal Medicine; ATTEND Internal Medicine
DX: F41.9 Anxiety disorder, unspecified (principal); N17.0 Acute kidney failure with tubular necrosis; F12.90 Cannabis use, unspecified, uncomplicated; F17.200 Nicotine dependence, unspecified, uncomplicated; I12.9 Hypertensive chronic kidney disease with stage 1 through stage 4 chronic kidney disease, or unspecified chronic kidney disease; N18.2 Chronic kidney disease, stage 2 (mild)
CPT/HCPCS: 36415; 71010; 71260; 80047; 80048; 84484; 85027; 93005; 93017; 93306; 93350; 94250; 96374; 96375; G0480; J2060; J3010; Q9967; 99285-25

== ENCOUNTER 2017-10-20 12:53 | Emergency (ER) | payer SELFPAY ==
[2017-10-20] MEDS: LIDOCAINE 1% PF 30 ML VIAL. INJ (14:34)
== END 2017-10-20 16:20 | disposition home or self-care (01) ==
LOC: ER 16:20
DX: S81.811A Laceration without foreign body, right lower leg, initial encounter (principal); K21.9 Gastro-esophageal reflux disease without esophagitis; W25.XXXA Contact with sharp glass, initial encounter; Y93.89 Activity, other specified; Y92.89 Other specified places as the place of occurrence of the external cause; Y99.8 Other external cause status
CPT/HCPCS: 12002; 73590; 99284